=== PATIENT | female | born 1990 | race Caucasian/White ===

== ENCOUNTER 2018-02-04 17:05 | Observation (INO) ==
[2018-02-04] MEDS ORDERED: TERBUTALINE 1 MG/1 ML VIAL SUBCUT PRN (18:36)
[2018-02-04] MEDS ORDERED: LACTATED RINGERS 1,000 ML IV ONE (18:36)
[2018-02-04] MEDS ORDERED: ACETAMINOPHEN/CODEINE 300-30 MG TABLET PO ONE (18:37)
[2018-02-05] MEDS ORDERED: BUTORPHANOL 2 MG/ML VIAL IV PRN (00:12)
[2018-02-05] MEDS ORDERED: ONDANSETRON 4 MG/2 ML VIAL IV PRN (00:12)
[2018-02-05] MEDS ORDERED: LACTATED RINGERS 1,000 ML IV SCH (00:30)
== END 2018-02-05 10:03 | disposition home or self-care (01) ==
LOC: N.LDOUT 17:05 → N.LD 17:05
PROVIDERS: ADMIT Obstetrics & Gynecology; ATTEND Obstetrics & Gynecology

== ENCOUNTER 2018-02-14 14:02 | Inpatient (IN) ==
[2018-02-14] MEDS ORDERED: BUTORPHANOL 2 MG/ML VIAL IV PRN (14:18)
[2018-02-14] MEDS ORDERED: MEPERIDINE 50 MG/1 ML VIAL IM PRN (14:18)
[2018-02-14] MEDS ORDERED: ONDANSETRON 4 MG/2 ML VIAL IV PRN ×2 (14:18→17:05)
[2018-02-14] MEDS ORDERED: diphenhydrAMINE 50 MG/1 ML VIAL IV PRN (14:20)
[2018-02-14] MEDS ORDERED: ePHEDrine 50 MG/ML AMP IV PRN (14:20)
[2018-02-14] MEDS ORDERED: FAMOTIDINE 20 MG/2 ML VIAL IV ONE (14:21)
[2018-02-14] MEDS: LACTATED RINGERS 1,000 ML IV SCH ×2 (14:21→14:57)
[2018-02-14] MEDS ORDERED: CITRIC ACID/SODIUM CITRATE 30 ML UDCUP PO ONE (14:22)
[2018-02-14] MEDS ORDERED: fentaNYL 2 MCG/ROPIV 0.2% EPID 150 ML EPIDURAL SCH (14:30)
[2018-02-14] MEDS ORDERED: OXYTOCIN/LR 20 UNIT/1,000 ML BAG IV SCH (14:30)
[2018-02-14] MEDS ORDERED: FAMOTIDINE 20 MG/2 ML VIAL IV SCH (14:30)
[2018-02-14 14:34] LABS: Basophils # 0.1 10*3/uL (0.0-0.2); Basophils % 0.4 % (0.0-0.8); Eosinophils % 0.2 % (0.00-10.9); Hematocrit 33.6 VOL% (35.7-47.0); Hemoglobin 11.3 GM/DL (12.0-16.0); Immature Granulocytes % 1.2 %; Lymphocytes # 2.6 10*3/uL (1.4-4.0); Lymphocytes % 15.9 % (21.3-54.2); Mean Corpuscular HGB Conc 33.6 GM/DL (32-36); Mean Corpuscular Hemoglobin 31 PG (27-34); Mean Corpuscular Volume 92.3 FL (87-102); Mean Platelet Volume 9.7 FL (9.6-12.0); Monocytes # 1.4 10*3/uL (0.11-0.8); Monocytes % 8.7 % (1.7-12.7); Neutrophils # 12.1 10*3/uL (1.4-7.4); Neutrophils % 73.6 % (38.7-73.9); Platelet Count 329 T/CUMM (130-400); Red Blood Count 3.64 MC/CUMM (3.8-5.5); Red Cell Distribution Width 12.8 % (9.3-17.3); White Blood Count 16.5 T/CUMM (4-12)
[2018-02-14] MEDS ORDERED: MEPERIDINE 50 MG/1 ML VIAL IV PRN (14:40)
[2018-02-14] MEDS ORDERED: OXYTOCIN/LR 20 UNIT/1,000 ML BAG IV ONE ×2 (16:09→17:05)
[2018-02-14] MEDS ORDERED: ACETAMINOPHEN 325 MG TABLET PO PRN (17:05)
[2018-02-14] MEDS ORDERED: WITCH HAZEL PADS 100/JAR TOP PRN (17:05)
[2018-02-14] MEDS ORDERED: BISACODYL 10 MG SUPP RECTAL PRN (17:05)
[2018-02-14] MEDS ORDERED: LANOLIN 50% CREAM 0.3 OZ TUBE TOP PRN (17:05)
[2018-02-14] MEDS ORDERED: RHO(D) IMMUNE GLOBULIN 300 MCG SYRINGE IM ONE (17:05)
[2018-02-14] MEDS ORDERED: BENZOCAINE 20%/MENTHOL 0.5% SPRAY 56 GM CAN TOP PRN (17:05)
[2018-02-14] MEDS ORDERED: MEASLES/MUMPS/RUBELLA VACCINE 0.5 ML VIAL SUBCUT ONE (17:05)
[2018-02-14] MEDS ORDERED: DIPH/TET/ACEL PERT BOOSTER VACCINE 0.5 ML VIAL IM ONE (17:05)
[2018-02-14] MEDS ORDERED: HYDROCORTISONE 2.5% RECTAL CREAM 30 GM TUBE TOP PRN (17:05)
[2018-02-14 17:18] LABS: Cord Arterial Blood HCO3 18.5 MMOL/L
[2018-02-14 17:20] LABS: Cord Venous Blood PCO2 46.6 MMHG; Cord Venous Blood PO2 25.5
[2018-02-15] MEDS: oxyCODONE/ACETAMINOPHEN 5-325 MG TABLET PO PRN ×3 (02:26→18:31)
[2018-02-15 06:03] LABS: Basophils # 0.1 10*3/uL (0.0-0.2); Basophils % 0.3 % (0.0-0.8); Eosinophils # 0.1 10*3/uL (0.0-0.87); Eosinophils % 0.4 % (0.00-10.9); Hematocrit 29.2 VOL% (35.7-47.0); Hemoglobin 10.1 GM/DL (12.0-16.0); Immature Granulocytes % 0.9 %; Immature Granulocytes Absolute 0.16 #; Lymphocytes # 2.3 10*3/uL (1.4-4.0); Lymphocytes % 12.9 % (21.3-54.2); Mean Corpuscular HGB Conc 34.6 GM/DL (32-36); Mean Corpuscular Hemoglobin 32 PG (27-34); Mean Corpuscular Volume 92.1 FL (87-102); Mean Platelet Volume 9.7 FL (9.6-12.0); Monocytes # 1.5 10*3/uL (0.11-0.8); Monocytes % 8.1 % (1.7-12.7); Neutrophils % 77.4 % (38.7-73.9); Platelet Count 231 T/CUMM (130-400); Red Blood Count 3.17 MC/CUMM (3.8-5.5); Red Cell Distribution Width 12.8 % (9.3-17.3); White Blood Count 18.1 T/CUMM (4-12)
[2018-02-15] MEDS: DOCUSATE SODIUM 100 MG CAPSULE PO SCH ×3 (06:17→21:18)
[2018-02-15] MEDS: IBUPROFEN 800 MG TABLET PO PRN ×2 (10:09→18:29)
[2018-02-16] MEDS: oxyCODONE/ACETAMINOPHEN 5-325 MG TABLET PO PRN ×2 (04:28→14:11)
[2018-02-16] MEDS: DOCUSATE SODIUM 100 MG CAPSULE PO SCH (09:36)
[2018-02-16 11:20] VITALS: BP 93/65
[2018-02-16] MEDS: IBUPROFEN 800 MG TABLET PO PRN (14:08)
== END 2018-02-16 15:45 | disposition home or self-care (01) | DRG 560 ==
LOC: N.LDOUT 14:02 → N.LD 14:03 → N.OB 19:45
PROVIDERS: ADMIT Obstetrics & Gynecology; ATTEND Obstetrics & Gynecology

== ENCOUNTER 2020-07-18 04:56 | Inpatient (IN) ==
[2020-07-18] MEDS ORDERED: LACTATED RINGERS 1,000 ML IV ONE ×2 (05:37→05:52)
[2020-07-18] MEDS ORDERED: MEPERIDINE 50 MG/1 ML VIAL IV PRN (05:42)
[2020-07-18] MEDS ORDERED: ONDANSETRON 4 MG/2 ML VIAL IV PRN ×3 (05:43→07:24)
[2020-07-18] MEDS ORDERED: diphenhydrAMINE 50 MG/1 ML VIAL IV PRN ×2 (05:52)
[2020-07-18] MEDS ORDERED: ePHEDrine 50 MG/ML VIAL IV PRN (05:52)
[2020-07-18] MEDS ORDERED: PROMETHAZINE 25 MG/1 ML VIAL IM ONE (05:52)
[2020-07-18] MEDS ORDERED: ePHEDrine 50 MG/ML VIAL ONE (05:52)
[2020-07-18] MEDS ORDERED: hydrOXYzine HCL 25 MG/1 ML VIAL IM PRN (05:52)
[2020-07-18] MEDS ORDERED: ONDANSETRON 4 MG/2 ML VIAL IV ONE (05:52)
[2020-07-18] MEDS ORDERED: ACETAMINOPHEN 325 MG TABLET PO PRN ×2 (05:52→07:24)
[2020-07-18] MEDS ORDERED: NALOXONE 0.4 MG/ML VIAL IV PRN (05:52)
[2020-07-18] MEDS ORDERED: LACTATED RINGERS 500 ML IV ONE (05:52)
[2020-07-18] MEDS ORDERED: FAMOTIDINE 20 MG/2 ML VIAL IV ONE ×2 (05:52→05:53)
[2020-07-18] MEDS ORDERED: CITRIC ACID/SODIUM CITRATE 30 ML UDCUP PO ONE (05:52)
[2020-07-18] MEDS ORDERED: LACTATED RINGERS 500 ML IV PRN (05:52)
[2020-07-18] MEDS ORDERED: CITRIC ACID/SODIUM CITRATE 30 ML UDCUP ONE (05:52)
[2020-07-18] MEDS ORDERED: fentaNYL 2 MCG/ROPIV 0.2% EPID 100 ML EPIDURAL ONE (05:54)
[2020-07-18] MEDS ORDERED: LACTATED RINGERS 1,000 ML IV SCH ×3 (06:00)
[2020-07-18] MEDS ORDERED: fentaNYL 2 MCG/ROPIV 0.2% EPID 100 ML EPIDURAL SCH (06:00)
[2020-07-18] MEDS ORDERED: miSOPROStoL 200 MCG TABLET ONE (06:06)
[2020-07-18] MEDS ORDERED: CARBOPROST TROMETHAMINE 250 MCG/ML AMP IM ONE (06:08)
[2020-07-18] MEDS ORDERED: OXYTOCIN/LR 20 UNIT/1,000 ML BAG IV ONE ×3 (06:08→10:34)
[2020-07-18] MEDS ORDERED: METHYLERGONOVINE 0.2 MG/1 ML AMP ONE (06:08)
[2020-07-18 06:18] LABS: Basophils # 0.1 10*3/uL (0.0-0.2); Basophils % 0.5 % (0.0-0.8); Eosinophils % 0.3 % (0.00-10.9); Hematocrit 35.1 VOL% (35.7-47.0); Hemoglobin 11.8 GM/DL (12.0-16.0); Immature Granulocytes % 0.9 %; Immature Granulocytes Absolute 0.12 #; Lymphocytes # 2.4 10*3/uL (1.4-4.0); Lymphocytes % 17.1 % (21.3-54.2); Mean Corpuscular HGB Conc 33.6 GM/DL (32-36); Mean Corpuscular Volume 93.1 FL (87-102); Mean Platelet Volume 9.5 FL (9.6-12.0); Monocytes % 7.8 % (1.7-12.7); Neutrophils % 73.4 % (38.7-73.9); Platelet Count 310 T/CUMM (130-400); Red Blood Count 3.77 MC/CUMM (3.8-5.5); Red Cell Distribution Width 12.6 % (9.3-17.3); White Blood Count 13.8 T/CUMM (4-12)
[2020-07-18] MEDS ORDERED: BUPIVACAINE SPINAL 0.75% 2 ML AMP SPINAL ONE (06:27)
[2020-07-18] MEDS ORDERED: fentaNYL 100 MCG/2 ML VIAL ONE (06:27)
[2020-07-18] MEDS ORDERED: MORPHINE 10 MG/10 ML VIAL ONE (06:27)
[2020-07-18 07:01] LABS: Albumin 2.7 G/DL (3.4-5.0); Bilirubin,Total 0.7 MG/DL (0.2-1.0); Calcium 8.9 MG/DL (8.5-10.1); Osmolality,Calculated 276.5 MOS/KG (273-304); Total Protein 6.5 G/DL (6.4-8.3)
[2020-07-18 07:22] LABS: Cord Venous Blood HCO3 20.6 MMOL/L; Cord Venous Blood PCO2 48.6 MMHG; Cord Venous Blood PO2 24.6
[2020-07-18] MEDS ORDERED: oxyCODONE/ACETAMINOPHEN 5-325 MG TABLET PO PRN ×2 (07:24)
[2020-07-18] MEDS ORDERED: BENZOCAINE 20%/MENTHOL 0.5% SPRAY 56 GM CAN TOP PRN (07:24)
[2020-07-18] MEDS ORDERED: RHO(D) IMMUNE GLOBULIN 300 MCG SYRINGE IM ONE (07:24)
[2020-07-18] MEDS ORDERED: DIPH/TET/ACEL PERT BOOSTER VACCINE 0.5 ML VIAL IM ONE (07:24)
[2020-07-18] MEDS ORDERED: HYDROCORTISONE 2.5% RECTAL CREAM 30 GM TUBE TOP PRN (07:24)
[2020-07-18] MEDS ORDERED: WITCH HAZEL PADS 100/JAR TOP PRN (07:24)
[2020-07-18] MEDS ORDERED: MEASLES/MUMPS/RUBELLA VACCINE 0.5 ML VIAL SUBCUT ONE (07:24)
[2020-07-18] MEDS ORDERED: BISACODYL 10 MG SUPP RECTAL PRN (07:24)
[2020-07-18] MEDS ORDERED: LANOLIN 50% CREAM 0.3 OZ TUBE TOP PRN (07:24)
[2020-07-18 07:37] LABS: Bilirubin,Urine Negative (Negative); Blood, Urine Small mg/dL (Negative); Glucose,Urine (UA) Negative (Negative); Ketones,Urine 5 mg/dL (Negative); Mucus,Urine Few /LPF (Occasional); Nitrite,Urine Negative (Negative); Protein,Urine Negative; RBC,Urine 18 /HPF (0-4); Urine Appearance CLEAR (Clear); Urine Color Yellow (Yellow); WBC,Urine <1 /HPF (0-6)
[2020-07-18] MEDS: POTASSIUM CHLORIDE 20 MEQ TABLET PO PRN ×4 (12:30→17:42)
[2020-07-18] MEDS: DOCUSATE SODIUM 100 MG CAPSULE PO SCH (20:59)
[2020-07-18] MEDS: SERTRALINE 50 MG TABLET PO SCH (20:59)
[2020-07-19] MEDS: DOCUSATE SODIUM 100 MG CAPSULE PO SCH ×3 (05:03→20:33)
[2020-07-19 06:13] LABS: Basophils # 0.1 10*3/uL (0.0-0.2); Basophils % 0.4 % (0.0-0.8); Eosinophils # 0.2 10*3/uL (0.0-0.87); Eosinophils % 1.5 % (0.00-10.9); Hematocrit 31.7 VOL% (35.7-47.0); Hemoglobin 10.7 GM/DL (12.0-16.0); Immature Granulocytes % 0.5 %; Immature Granulocytes Absolute 0.06 #; Lymphocytes # 2.4 10*3/uL (1.4-4.0); Lymphocytes % 20.4 % (21.3-54.2); Mean Corpuscular HGB Conc 33.8 GM/DL (32-36); Mean Corpuscular Volume 93.8 FL (87-102); Mean Platelet Volume 9.9 FL (9.6-12.0); Monocytes % 6.8 % (1.7-12.7); Neutrophils % 70.4 % (38.7-73.9); Platelet Count 191 T/CUMM (130-400); Red Blood Count 3.38 MC/CUMM (3.8-5.5); Red Cell Distribution Width 12.8 % (9.3-17.3); White Blood Count 11.8 T/CUMM (4-12)
[2020-07-19] MEDS: IBUPROFEN 800 MG TABLET PO PRN ×3 (15:02→22:18)
[2020-07-19] MEDS ORDERED: metroNIDAZOLE 500 MG TABLET PO ONE (15:52)
[2020-07-19] MEDS: SERTRALINE 50 MG TABLET PO SCH (20:33)
[2020-07-20 07:24] VITALS: BP 99/66
[2020-07-20] MEDS: DOCUSATE SODIUM 100 MG CAPSULE PO SCH (09:55)
== END 2020-07-20 13:13 | disposition home or self-care (01) | DRG 560 ==
LOC: N.LDOUT 04:56 → N.LD 04:58 → N.OB 10:56
PROVIDERS: ADMIT Obstetrics & Gynecology; ATTEND Obstetrics & Gynecology